=== PATIENT | male | born 1965 | race Caucasian/White ===

== ENCOUNTER 2018-06-14 04:34 | Emergency (ER) | payer OTHER ==
[~2018-06-14 04:34] MED LIST: ANAPROX DS550 MG PO; BACTRIM DS TAB1 EACH PO; BLOOD PRESSURE; HYDROCHLOROTH12.5 MG PO; HYDROCHLOROTHIA25 M1; HYDROCODONE-AP1 EAC6 PO; IBUPROFEN 800800 M1 PO; KEFLEX500 MG PO; LEVOTHYROXIN0.137 M1 PO; LISINOPRIL40 MG PO; NORCO 5-325 TA1 EACH PO; PRINIVIL20 MG PO; PROTONIX40 M1 PO; SYNTHROID175 MCG PO; SYNTHROID300 MCG PO
== END 2018-06-14 05:55 ==
LOC: M.ERS 04:34
DX: Z53.21 Procedure and treatment not carried out due to patient leaving prior to being seen by health care provider (principal)

== ENCOUNTER 2020-04-16 19:04 | Inpatient (IN) | payer BC ==
[~2020-04-16] VITALS: Ht 152.4 cm; Wt 97.1 kg
[2020-04-16 19:20] VITALS: BP 132/91
[2020-04-16] MEDS ORDERED: NORVASC 2.5 MG2.5 M1 PO (19:29)
[2020-04-16] MEDS ORDERED: MICARDIS 20MG T20 M1 PO (19:29)
[2020-04-16] MEDS ORDERED: DESYREL150 MG PO (19:30)
[2020-04-16 19:54] LABS: ABSOLUTE BASOPHILS 0.1 thou/uL (0.0-0.2); ABSOLUTE EOSINOPHILS 0.3 thou/uL (0.0-0.7); ABSOLUTE LYMPHOCYTES 1.4 thou/uL (0.8-5.3); ABSOLUTE NEUTROPHILS 9.1 thou/uL (1.6-8.1); BASOPHILS 0.5 %; EOSINOPHILS 2.9 %; HEMATOCRIT 45.6 % (42.0-52.0); LYMPHOCYTES 11.7 %; MCH 32.2 pg (26.0-34.0); MCHC 35.1 g/dL (28.0-37.0); MCV 91.8 fL (80.0-100.0); MONOCYTES 8.6 %; MPV 8.4 fl. (7.2-11.1); NUCLEATED RBCS 0 /100WBC; PLATELET COUNT* 340 thou/uL (150-400); POLYS 76.3 %; RBC 4.96 mil/uL (4.50-6.00); RDW-CV 13.1 % (10.5-14.5); WBC 11.9 thou/uL (4.0-11.0)
[2020-04-16 19:58] LABS: CALCIUM 10.3 mg/dL (8.5-10.1); CREATININE 1.1 mg/dL (0.6-1.3)
[2020-04-16 20:03] LABS: ALBUMIN 5.2 g/dL (3.4-5.0); TOTAL BILIRUBIN 0.7 mg/dL (<0.1-1.0); TOTAL PROTEIN 9.6 g/dL (6.4-8.2)
[2020-04-16 22:56] LABS: URINE BILIRUBIN NEGATIVE (Negative); URINE BLOOD NEGATIVE (Negative); URINE CLARITY CLEAR; URINE COLOR YELLOW; URINE GLUCOSE-RANDOM NEGATIVE (Negative); URINE KETONES NEGATIVE (Negative); URINE LEUKOCYTES-REFLEX NEGATIVE (Negative); URINE NITRITE-REFLEX NEGATIVE (Negative); URINE PROTEIN NEGATIVE (Negative); URINE SPECIFIC GRAVITY <= 1.005 (1.005-1.030); URINE UROBILINOGEN 0.2 E.U./dl (0.2-1.0)
[2020-04-16 23:14] LABS: PROTIME 10.2 Seconds (9.20-11.50)
[2020-04-17] VITALS (7 sets, daily range): BP systolic 116–142; BP diastolic 60–85
[2020-04-17 09:56] LABS: ABSOLUTE EOSINOPHILS 0.4 thou/uL (0.0-0.7); ABSOLUTE LYMPHOCYTES 0.8 thou/uL (0.8-5.3); ABSOLUTE MONOCYTES 0.7 thou/uL (0.0-1.2); BASOPHILS 0.6 %; EOSINOPHILS 5.1 %; HEMATOCRIT 40.2 % (42.0-52.0); LYMPHOCYTES 11.7 %; MCHC 34.5 g/dL (28.0-37.0); MCV 92.8 fL (80.0-100.0); MONOCYTES 10.3 %; MPV 8.2 fl. (7.2-11.1); NUCLEATED RBCS 0 /100WBC; PLATELET COUNT* 284 thou/uL (150-400); POLYS 72.3 %; RBC 4.33 mil/uL (4.50-6.00); RDW-CV 13.5 % (10.5-14.5)
[2020-04-17 09:58] LABS: HEMOGLOBIN 13.9 gm/dL (14.0-18.0)
[2020-04-17 10:04] LABS: CALCIUM 8.9 mg/dL (8.5-10.1); CREATININE 1.1 mg/dL (0.6-1.3); POTASSIUM 3.4 mmol/L (3.5-5.1)
[2020-04-17 10:07] LABS: APTT 26.3 Seconds (25.0-31.3); PROTIME 10.5 Seconds (9.20-11.50)
[2020-04-17 10:08] LABS: ALBUMIN 3.9 g/dL (3.4-5.0); MAGNESIUM 1.7 mg/dL (1.8-2.4); PHOSPHORUS* 3.3 mg/dL (2.5-4.9); TOTAL BILIRUBIN 0.5 mg/dL (<0.1-1.0); TOTAL PROTEIN 7.7 g/dL (6.4-8.2)
--- NOTE | 2020-04-17 15:27 | EKG ---
[place] [address] ELECTROCARDIOGRAM REPORT Name: MANDI BATEMAN Room: [address]R.#: [id number] Admission: 04/16/20 Attend Phys: Jose Leon, Discharge: Date of : 65 Date of Service: 04/16/201922 Report #: [id number] THIS REPORT FOR: //name// [facility] ED Test Date: 2020-04-16 Test Time: 19:23:40 Pat Name: MANDI BATEMAN Department: Room: [facility] Gender: M Data Developer: [place] : 1965 Requested By: Molly Chaudhary Order Number: [id number] MD: Kana Johnson Measurements Intervals [place] Rate: 109 P: 42 UT: 193 QRS: -16 QRSD: 91 T: -5 QT: 334 QTc: 450 Interpretive Statements Sinus tachycardia Stable left atrial enlargement Left ventricular hypertrophy, by voltage Borderline T abnormalities, inferior leads Baseline wander in lead(s) II,III,aVF Compared to ECG 07/06/2017 17:58:03 T-wave abnormality now present Sinus rhythm no longer present ST (T wave) deviation no longer present Electronically Signed On 04-17-2020 15:27:20 CDT by Kana Johnson [email or web address] <ELECTRONICALLY SIGNED> By: Kana Johnson MD, [facility] 04/17/20 1527 22 22 Kana Johnson MD, [facility] /EPI
[2020-04-18 04:51] LABS: ABSOLUTE EOSINOPHILS 0.4 thou/uL (0.0-0.7); ABSOLUTE LYMPHOCYTES 1.1 thou/uL (0.8-5.3); ABSOLUTE MONOCYTES 0.7 thou/uL (0.0-1.2); ABSOLUTE NEUTROPHILS 2.6 thou/uL (1.6-8.1); BASOPHILS 0.9 %; EOSINOPHILS 8.2 %; HEMATOCRIT 38.3 % (42.0-52.0); HEMOGLOBIN 13.4 gm/dL (14.0-18.0); LYMPHOCYTES 22.5 %; MCH 32.4 pg (26.0-34.0); MCV 92.5 fL (80.0-100.0); MONOCYTES 15.3 %; MPV 8.6 fl. (7.2-11.1); NUCLEATED RBCS 0 /100WBC; PLATELET COUNT* 282 thou/uL (150-400); POLYS 53.1 %; RBC 4.15 mil/uL (4.50-6.00); RDW-CV 13.7 % (10.5-14.5); WBC 4.8 thou/uL (4.0-11.0)
[2020-04-18 05:01] LABS: ALBUMIN 3.2 g/dL (3.4-5.0); CALCIUM 8.7 mg/dL (8.5-10.1); POTASSIUM 3.8 mmol/L (3.5-5.1); TOTAL BILIRUBIN 0.3 mg/dL (<0.1-1.0); TOTAL PROTEIN 6.4 g/dL (6.4-8.2)
[2020-04-18 08:15] VITALS: BP 132/88
[2020-04-18 08:43] LABS: HEMATOCRIT 39.6 % (42.0-52.0); HEMOGLOBIN 13.9 gm/dL (14.0-18.0); MCH 32.3 pg (26.0-34.0); MCV 92.1 fL (80.0-100.0); MPV 8.2 fl. (7.2-11.1); RBC 4.29 mil/uL (4.50-6.00); RDW-CV 13.2 % (10.5-14.5); WBC 4.5 thou/uL (4.0-11.0)
[2020-04-18 08:49] LABS: CREATININE 0.9 mg/dL (0.6-1.3); POTASSIUM 3.9 mmol/L (3.5-5.1)
--- NOTE | 2020-04-18 17:45 | 2DMMODE ---
[place] [address] 2 D/M-MODE ECHOCARDIOGRAM Name: MANDI BATEMAN Room: [address] [place] .Ericka.#: [id number] Admission: 04/17/20 Attend Phys: Jose Leon, Discharge: Date of : 65 Date of Service: 04/18/20 1745 Report #: [id number] THIS REPORT FOR: cc: FAM - No family physician/PCP FAM - No family physician/PCP Mandi Mckay MD [facility] ~ APPROVED REPORT Study performed: 04/18/2020 13:44:29 EXAM: Comprehensive 2D, Doppler, and color-flow Echocardiogram Patient Location: In-Patient Room #: [facility] Status: routine BSA: 2.17 HR: 80 bpm BP: 142/75 mmHg Rhythm: NSR Other Information Study Quality: Good Indications Chest Pain 2D Dimensions IVSd: 13.64 (7-11mm) LVOT Diam: 20.12 (18-24mm) LVDd: 50.32 mm PWd: 12.31 (7-11mm) Ascending Ao: 34.06 (22-36mm) LVDs: 25.32 (25-40mm) Aortic Root: 32.42 mm Volumes Left Atrial Volume (Systole) LA ESV Index: 28.80 mL/m2 Aortic Valve AoV Peak Julian.: 1.80 m/s AO Peak Gr.: 13.00 mmHg LVOT Max P.46 mmHg AO Mean Gr.: 6.97 mmHg LVOT Mean P.14 mmHg LVOT Max V: 1.27 m/s AO V2 VTI: 29.91 cm LVOT Mean V: 0.81 m/s JEET (VTI): 3.47 cm2 LVOT V1 VTI: 32.69 [place] [address] 2 D/M-MODE ECHOCARDIOGRAM Name: MANDI BATEMAN Room: [address] [place] ..#: [id number] Admission: 04/17/20 Attend Phys: Jose Leon, Discharge: Date of : 65 Date of Service: 04/18/20 1745 Report #: [id number] Mitral Valve E/A Ratio: 0.98 MV Decel. Time: 312.86 ms MV E Max Julian.: 0.79 m/s MV PHT: 90.73 ms MVA (PHT): 2.42 cm2 TDI E/Lateral E': 5.64 E/Medial E': 9.88 Medial E' Julian.: 0.08 m/s Lateral E' Julian.: 0.14 m/s Pulmonary Valve PV Peak Julian.: 1.08 m/s PV Peak Gr.: 4.71 mmHg Left Ventricle The left ventricle is normal size. There is normal LV segmental wall motion. Mild concentric left ventricular hypertrophy. Left ventricular systolic function is normal. The left ventricular ejection fraction is within the normal range. LVEF is 65-70%. The left ventricular diastolic function is normal. Right Ventricle The right ventricle is normal size. The right ventricular systolic function is normal. Atria The left atrium size is normal. The right atrium size is normal. Aortic Valve Mild aortic valve sclerosis. trace aortic regurgitation is present. There is no aortic valvular stenosis. Mitral Valve The mitral valve is normal in structure. There is no mitral valve regurgitation noted. No evidence of mitral valve stenosis. Tricuspid Valve The tricuspid valve is normal in structure. Unable to assess PA pressure. Trace tricuspid regurgitation. Pulmonic Valve The pulmonary valve is normal in structure. There is no pulmonic [place] [address] 2 D/M-MODE ECHOCARDIOGRAM Name: MANDI BATEMAN Room: [address] [place] [facility]#: [id number] Admission: 04/17/20 Attend Phys: Jose Leon, Discharge: Date of : 65 Date of Service: 04/18/20 1745 Report #: [id number] Great Vessels The aortic root is normal in size. IVC is normal in size and collapses >50% with inspiration. Pericardium There is no pericardial effusion. <Conclusion> LVEF is 65-70%. Mild aortic valve sclerosis. Mild concentric left ventricular hypertrophy. <ELECTRONICALLY SIGNED> By: Mandi Mckay MD, [facility] 04/18/201744 44 44 Mandi Mckay MD, FAC /INF
[2020-04-18 20:15] VITALS: BP 135/89
[2020-04-19] VITALS: BP 113/66
[2020-04-19 03:06] LABS: GLYCOHEMOGLOBIN (HGB A1C) 5.1 % (4.8-5.6)
[2020-04-19 08:00] VITALS: BP 134/91
[2020-04-19] MEDS ORDERED: DOXYCYCLINE 10100 M2 PO (09:05)
[2020-04-19] MEDS ORDERED: OXYCODONE HCL 55 MG PO (10:36)
[2020-04-19 11:13] VITALS: BP 113/66
== END 2020-04-19 11:30 | disposition home or self-care (01) | DRG 177 ==
LOC: M.ERS 19:04 → M.TBA-ER 21:08 → M.2W 04-17 13:25
PROVIDERS: Emergency Medicine; Internal Medicine; ADMIT Internal Medicine; ATTEND Internal Medicine
DX: U07.1 COVID-19 (principal); M72.6 Necrotizing fasciitis; T88.3XXA Malignant hyperthermia due to anesthesia, initial encounter; L03.116 Cellulitis of left lower limb; L03.115 Cellulitis of right lower limb; E03.9 Hypothyroidism, unspecified; I10 Essential (primary) hypertension; Z90.49 Acquired absence of other specified parts of digestive tract; Z79.899 Other long term (current) drug therapy